=== PATIENT | male | born 1995 | race Hispanic/Latino ===

== ENCOUNTER 2022-04-24 11:19 | Emergency (ER) | payer SELFPAY | END 2022-04-24 12:45 | disposition home or self-care (01) | LOC: BURERS 11:19 | DX: J06.9 Acute upper respiratory infection, unspecified (principal); H66.91 Otitis media, unspecified, right ear; F17.210 Nicotine dependence, cigarettes, uncomplicated | CPT/HCPCS: 99283 ==

== ENCOUNTER 2024-11-23 12:45 | Emergency (ER) | payer BC, SELFPAY | END 2024-11-23 13:25 | disposition home or self-care (01) | LOC: BURERS 12:45 | DX: S60.221A Contusion of right hand, initial encounter (principal); F17.210 Nicotine dependence, cigarettes, uncomplicated; W22.8XXA Striking against or struck by other objects, initial encounter; Y99.0 Civilian activity done for income or pay | CPT/HCPCS: 99283 ==

== ENCOUNTER 2024-12-05 11:20 | Emergency (ER) | payer SELFPAY ==
[2024-12-05] MEDS ORDERED: Acetaminophen 500 MG TAB ONE (12:03)
== END 2024-12-05 12:10 | disposition home or self-care (01) ==
LOC: BURERS 11:20
DX: H92.02 Otalgia, left ear (principal)
CPT/HCPCS: 99283

== ENCOUNTER 2025-10-12 07:23 | Emergency (ER) | payer BC ==
[2025-10-12] MEDS ORDERED: Cephalexin 250 MG CAP ONE (08:34)
== END 2025-10-12 08:40 | disposition home or self-care (01) ==
LOC: BURERS 07:23
DX: L02.415 Cutaneous abscess of right lower limb (principal)
CPT/HCPCS: 99282